=== PATIENT | male | born 1945 | race Caucasian/White ===

== ENCOUNTER → 2016-09-16 | Outpatient (CLI) | payer MEDICARE, OTHER ==
[~2016-09-16] MED LIST: REGADENOSON INJ 0.4 MG/5 ML DISP.SYRIN IV ONE
--- NOTE | 2016-09-17 16:45 | RADIOLOGY REPORT ---
STRESS TEST REPORT PATIENT NAME: JERSEY BIGGS ROOM#: DATE OF SERVICE: 09/16/2016 AGE: 71Y ORDER#: [id number] REFERRING MD: Noam Samson M.D. INDICATION: For assessment of rapid palpitations and shortness of breath. PROCEDURE PERFORMED REST/STRESS SINGLE ISOTOPE CARDIOLITE SPECT IMAGING WITH IV LEXISCAN STRESS AND GATED SPECT IMAGING CLINICAL HISTORY This is a 71-year-old male patient with no known coronary artery disease but has cardiac risk factors of hypercholesterolemia, hypertension and family history of heart problems. Current symptomatology includes shortness of breath and rapid palpitations while sitting. PROCEDURE The patient received IV Lexiscan 0.4 mg infused over ten seconds and flushed. The resting heart rate was 74 bpm and increased to 91 bpm at end infusion. The resting BP was 128/84 and increased to 132/75. Patient had symptoms of shortness of breath, but no chest pains. A few PVCs per minute were seen post IV Lexiscan infusion. Resting 12 lead EKG showed normal sinus rhythm with bigeminal PVCs, early transition, therefore rule-out old true posterior ME. At end infusion, no ST changes were seen. Myocardial perfusion imaging was performed at rest 60 minutes following injection of 14.65 mCi Cardiolite. Ten seconds after the IV Lexiscan injection, the patient was injected with 44.8 mCi Cardiolite and flushed. Gated post stress tomographic imaging was performed 60 minutes after stress. FINDINGS The overall quality of the study is fair. The left ventricular cavity is noted to be enlarged on both the rest and stress studies. There is no abnormal transient ischemic dilatation of the left ventricle. The TID ratio was normal at 1.10. Right ventricular uptake is increased. SPECT images showed no evidence of IV Lexiscan induced reversible ischemia. There are, however, large areas of severe fixed perfusion defects in the basal inferior wall, basal inferolateral wall, and basal inferoseptal wall. The gated SPECT imaging showed severe reduced motion and contraction in the basal two-thirds of the inferior wall, basal inferior wall and basal inferoseptal wall. The left ventricular ejection fraction was calculated to be 37% and there was LV enlargement. IMPRESSION: MYOCARDIAL PERFUSION IMAGING IS ABNORMAL. THERE IS NO IV LEXISCAN INDUCED REVERSIBLE ISCHEMIA. THE ARE, HOWEVER, LARGES AREAS OF SEVERE FIXED PERFUSION DEFECT IN THE BASAL INFERIOR WALL, BASAL INFEROLATERAL WALL AND BASAL INFEROSEPTAL WALL WITH SEVERE REDUCED MOTION AND CONTRACTION SUGGESTING PREVIOUS DAMAGE. THE OVERALL LEFT VENTRICULAR SYSTOLIC FUNCTION IS MODERATELY DEPRESSED TO 37% AND THERE IS LV ENLARGEMENT. NO PRIOR STUDIES FOR COMPARISON. INTERPRETING PHYSICIAN: MATTHEW HERNANDEZ M.D. /: CARLOS TT: [id number] ID: [id number] /: [id number] TD: [id number] JOB: [id number] cc:Geri TORRES M.D. [facility] MD > MTDD
== END ==
LOC: RAD 06:35
PROVIDERS: ATTEND Family Medicine
DX: R06.02 Shortness of breath (principal)
CPT/HCPCS: 93017; 78452; A9500; J2785; Q9969

== ENCOUNTER 2018-01-06 14:22 | Emergency (ER) | payer MEDICARE, OTHER ==
[2018-01-06] MEDS ORDERED: NORMAL SALINE 1000 ML 1,000 ML IV ONE ×2 (14:50→16:59)
--- NOTE | 2018-01-06 15:00 | ER Document Report ---
ED General - General Chief Complaint: Heat Exposure Stated Complaint: WEAKNESS Time Seen by Provider: 01/06/18 14:34 TRAVEL OUTSIDE OF THE [place] IN LAST 30 DAYS: No - HPI Notes: Patient is a 72-year-old male with a history of hypertension, anxiety/depression , PTSD, chronic right hip and right knee pain who presents to the ED with family via EMS for possible syncopal episode. Son states that patient was found near his truck laying on the ground by a neighbor. Patient does not recall falling or the precipitating events. Patient had been working outside all morning. Patient states that he does have some soreness to the right shoulder, but no other acute pain that he is aware of. Patient states that he does have generalized weakness associated. He has not noticed any muscle cramping. Patient states that he did have nausea and vomiting on 2 occasions this morning as well. states that he had been eating and drinking normally otherwise. He had been urinating normally and having normal bowel movements. Denies any significant cardiopulmonary medical history otherwise. Denies any history of smoking or IV drug use. Denies any prolonged immobilization, recent surgery/trauma, personal cancer history, previous DVT/ PE. Denies any headache, fever, obvious head injury, neck pain, changes in vision/speech/mentation/hearing, URI, sore throat, chest pain, palpitations, syncope, cough, shortness of breath, wheeze, dyspnea, abdominal pain, diarrhea, urinary retention, dysuria, hematuria, loss of control of bowel or bladder, numbness/tingling, saddle anesthesia, muscle paralysis, or rash. - Related Data Allergies/Adverse Reactions: aspirin Adverse Reaction (Intermediate, Verified 03/05/16 09:25) metoprolol [From Lopressor] Adverse Reaction (Intermediate, Verified 03/05/16 09 :25) Past Medical History - Social History Smoking Status: Never Smoker Family History: None - Past Medical History Cardiac Medical History: Reports: Hx Hypercholesterolemia Denies: Hx Coronary Artery Disease, Hx Heart Attack, Hx Hypertension Pulmonary Medical History: Reports: Hx Asthma, Hx Pneumonia Denies: Hx Bronchitis, Hx COPD Neurological Medical History: Denies: Hx Cerebrovascular Accident, Hx Seizures Musculoskeletal Medical History: Denies Hx Arthritis Past Surgical History: Reports: Hx Appendectomy - Immunizations Hx Diphtheria, Pertussis, Tetanus Vaccination: No Review of Systems - Review of Systems -: Yes All other systems reviewed and negative Physical Exam - Vital signs Vitals: Resp Pulse Ox 20 100 01/06/18 14:28 01/06/18 14:28 - Notes Notes: PHYSICAL EXAMINATION: accompanied by female nurse GENERAL: appears weak, well-nourished and in no acute distress. A&Ox4. Answers questions appropriately. HEAD: Atraumatic, normocephalic. Non-tender. No blake sign. No hematoma/ bogginess. EYES: Pupils equal round and reactive to light, extraocular movements intact, sclera anicteric, conjunctiva are normal. No raccoon eyes/entrapment ENT: cerumen impaction b/l, cannot remove successfully at this time. TM's unable to be visualized. Nares patent and without discharge. oropharynx clear without exudates. No tonsilar hypertrophy or erythema. Moist mucous membranes. No sinus tenderness. No obvious CSF discharge. NECK: LROM to lateral rotation- mild limitation, supple without lymphadenopathy. No rigidity. No midline tenderness. Chest: no ecchymosis. No flail chest. equal rise/fall. Non-tender LUNGS: Breath sounds clear to auscultation bilaterally and equal. No wheezes rales or rhonchi. HEART: Regular rate and rhythm without murmurs, rubs, gallops. ABDOMEN: Soft, nontender, nondistended abdomen. No guarding, no rebound. No masses appreciated. Normal bowel sounds present. No CVA tenderness bilaterally. no ecchymosis. Rectal: guiac obtained. stool light brown, no obvious melena or hematochezia Musculoskeletal: Rt shoulder: FROM. No obvious deformity, ecchymosis, erythema , swelling. + mild tenderness posterosuperior shoulder to palp. N/V intact distal. Ext's otherwise including pelvis b/l: FROM to passive/active. Strength 5+/5. No deficits noted. No bony tenderness of extremities. Back: FROM to passive/active. Strength 5+/5. No vertebral point tenderness, stepoffs, or deformities. No other bony tenderness or ecchymosis. Extremities: No cyanosis, clubbing, or edema b/l. Peripheral pulses 2+. Capillary refill less than 2 seconds. NEUROLOGICAL: NIH 0. GCS 15. Cranial nerves grossly intact. Normal speech. Normal sensory, motor exams. Reflexes 2+ b/l. BRIDGETTE's negative. Pronator drift negative. Heel/pandey, finger/nose wnl. Walking on heels/toes and heel to toe wnl. PSYCH: Normal mood, normal affect. SKIN: Warm, Dry, normal turgor, no rashes or lesions noted. Course - Re-evaluation Re-evalutation: 01/06/18 15:00 C collar placed after eval. Imaging, labs, and fluids ordered Vitals acceptable at this time. 01/06/18 16:56 Reevaluation of patient. Patient states that he is feeling much better and is communicating a lot better as well. Patient states that he had dizziness prior to his syncopal episode which he has had once before. Patient states that he found a flat area and aided himself to the ground at that time. At this time, patient is not enthusiastic about staying in the hospital for further evaluation. There have not been any significant notable arrhythmias on his monitor and EKG aside from frequent PVCs. CBC does show chronic microcytic hypochromic anemia as well as chronic thrombocytopenia. CMP, cardiac enzymes, chest x-ray, EKG otherwise unremarkable. Orthostatics ordered. CT scan of the head/cervical spine and Rt shoulder XR negative. 01/06/18 17:39 I did have the patient in the interim stand up for me to obtain a guiac. Pt was able to get himself back into the bed, but his O2 dec to 87% on RA. After 30 seconds his O2 increased back to 100% on RA. We will ambulate patient after Orthostatics are obtained to further evaluate. 01/06/18 18:50 Patient is an afebrile, well-hydrated, 72-year-old male who presents to the ED with dizziness and a syncopal episode, since resolved. Vitals are acceptable without significant tachycardia, tachypnea, or hypoxia at this time. PE is otherwise unremarkable for any focal neurological deficits. NIH 0, GCS 15, cranial nerves grossly intact. Orthostatics were negative. Ambulatory test on room air was performed and patient maintain oxygen greater than 95%. Patient states that he is feeling much better and wants to go home. I did review admission versus discharge to home with the patient and family thoroughly after review with Dr. Albright who advised admission for syncopal work up. Patient declined this despite the risk and benefit thoroughly reviewed. Patient is willing to sign the AMA sheet. Guaiac was negative. No other labs or imaging warranted at this time based on H&P. Advise recheck tomorrow morning with primary care provider. Return to the ED with any worsening/concerning symptoms otherwise as reviewed in discharge. Patient and family are in agreement. - Vital Signs Vital signs: Temp Pulse Resp BP Pulse Ox 97.4 F 70 19 162/109 H 100 01/06/18 14:36 01/06/18 18:20 01/06/18 17:40 01/06/18 18:20 01/06/18 17:40 - Laboratory Result Diagrams: 01/06/18 14:33 01/06/18 14:33 Laboratory results interpreted by me: 01/06/18 01/06/18 14:33 14:33 Hgb 9.6 L Hct 29.5 L MCV 59 L MCH 19.2 L RDW 16.3 H Plt Count 91 L Chloride 112 H Carbon Dioxide 20 L Glucose 73 L Discharge - Discharge Clinical Impression: Episode of syncope Qualifiers: Syncope type: unspecified Qualified Code(s): R55 - Syncope and collapse Condition: Stable Disposition: AGAINST MEDICAL ADVICE Additional Instructions: Maintain adequate fluid and food intake Take home medications as directed Healthy diet Monitor blood pressure daily and keep a log Monitor symptoms for any acute changes Recheck with your PCM tomorrow Consider a follow-up with cardiology Return to the ED with any worsening symptoms and/or development of fever, headache, chest pain, palpitations, syncope, shortness of breath, trouble breathing, abdominal pain, n/v/d, blood in stool/urine, loss of control of bowel /bladder, urinary retention, muscle weakness/paralysis, numbness/tingling, or other worsening symptoms that are concerning to you. Forms: Elevated Blood Pressure Referrals: BYRON SMITH MD [Primary Care Provider] - Follow up tomorrow
[2018-01-06 15:12] LABS: ABSOLUTE BASOPHILS # (AUTO) 0.1 10^3/uL (0.0-0.2); ABSOLUTE EOSINOPHILS # (AUTO) 0.1 10^3/uL (0.0-0.6); ABSOLUTE LYMPHOCYTES (AUTO) 1.3 10^3/uL (0.5-4.7); ABSOLUTE MONOCYTES (AUTO) 0.4 10^3/uL (0.1-1.4); ABSOLUTE NEUT (AUTO) 3.5 10^3/uL (1.7-8.2); BASOPHILS % (AUTO) 1.2 % (0-2); EOSINOPHILS % (AUTO) 2.3 % (0-6); HEMATOCRIT 29.5 % (37.9-51.0); HEMOGLOBIN 9.6 g/dL (13.5-17.0); LYMPHOCYTES % (AUTO) 24.4 % (13-45); MEAN CORPUSCULAR HEMOGLOBIN 19.2 pg (27.0-33.4); MEAN CORPUSCULAR HGB CONC 32.6 g/dL (32.0-36.0); MEAN CORPUSCULAR VOLUME 59 fl (80-97); RED BLOOD COUNT 5.02 10^6/uL (4.35-5.55); RED CELL DISTRIBUTION WIDTH 16.3 % (11.5-14.0); SEGMENTED NEUTROPHILS % (AUTO) 65.1 % (42-78); TOTAL CELLS COUNTED % (AUTO) 100 %; WHITE BLOOD COUNT 5.4 10^3/uL (4.0-10.5)
--- NOTE | 2018-01-06 15:31 | RADIOLOGY REPORT (SQ) ---
EXAM DESCRIPTION: CT HEAD WITHOUT COMPLETED DATE/TIME: 01/06/2018 3:22 pm REASON FOR STUDY: syncopal episode COMPARISON: None. TECHNIQUE: Axial images acquired through the brain without intravenous contrast. Images reviewed wi th bone, brain and subdural windows. Images stored on PACS. All CT scanners at this facility use dose modulation, iterative reconstruction, and/or weight based d osing when appropriate to reduce radiation dose to as low as reasonably achievable (ALARA). [facility]: Dose Right [facility]: CareDose [facility]: Dose Right [facility]: Teradose 4D [facility]: Smart [employer] RADIATION DOSE: CT Rad equipment meets quality standard of care and radiation dose reduction techniq ues were employed. CTDIvol: 53.2 mGy. DLP: 1097 mGy-cm. mGy. LIMITATIONS: None. FINDINGS: VENTRICLES: Prominent. CEREBRUM: No masses. No hemorrhage. No midline shift. Areas of low density in the white matter mos t likely due to chronic micro-vascular ischemic change. No evidence for acute infarction. CEREBELLUM: No masses. No hemorrhage. No alteration of density. No evidence for acute infarction. EXTRAAXIAL SPACES: Mild age-related involutional change. No fluid collections. No masses. ORBITS AND GLOBE: No intra- or extraconal masses. Normal contour of globe without masses. CALVARIUM: No fracture. PARANASAL SINUSES: No fluid or mucosal thickening. SOFT TISSUES: No mass or hematoma. OTHER: No other significant finding. IMPRESSION: MILD CHRONIC CHANGES OF ATROPHY AND MICROVASCULAR ISCHEMIA. NO ACUTE PROCESS. EVIDENCE OF ACUTE STROKE: NO. TECHNICAL DOCUMENTATION: JOB ID: [id number] Quality ID # [id number]: Final reports with documentation of one or more dose reduction techniques (e.g., Au tomated exposure control, adjustment of the mA and/or kV according to patient size, use of iterative reconstruction technique) 2010 [employer]- All Rights Reserved Reading location - IP/workstation name: [email or web address]
--- NOTE | 2018-01-06 15:32 | RADIOLOGY REPORT (SQ) ---
EXAM DESCRIPTION: CT CERVICAL SPINE WITHOUT COMPLETED DATE/TIME: 01/06/2018 3:22 pm REASON FOR STUDY: syncopal episode COMPARISON: None. TECHNIQUE: Axial images acquired through the cervical spine without intravenous contrast. Images re viewed with lung, soft tissue and bone windows. Reconstructed coronal and sagittal MPR images review ed. Images stored on PACS. All CT scanners at this facility use dose modulation, iterative reconstruction, and/or weight based d osing when appropriate to reduce radiation dose to as low as reasonably achievable (ALARA). [facility]: Dose Right [facility]: CareDose [facility]: Dose Right [facility]: Teradose 4D [facility]: [employer] RADIATION DOSE: CT Rad equipment meets quality standard of care and radiation dose reduction techniq ues were employed. CTDIvol: 22.7 mGy. DLP: 472 mGy-cm. mGy. LIMITATIONS: None. FINDINGS: ALIGNMENT: Anatomic. MINERALIZATION: Normal. VERTEBRAL BODIES: No fractures or dislocation. DISCS: Mild multilevel spondylosis. FACETS, LATERAL MASSES, POSTERIOR ELEMENTS: No fractures. No dislocation. No acute findings. HARDWARE: None in the spine. VISUALIZED RIBS: No fractures. LUNG APICES AND SOFT TISSUES: No significant or acute findings. OTHER: No other significant finding. IMPRESSION: Mild degenerative changes in the lower cervical spine. No acute findings. TECHNICAL DOCUMENTATION: JOB ID: [id number] Quality ID # [id number]: Final reports with documentation of one or more dose reduction techniques (e.g., Au tomated exposure control, adjustment of the mA and/or kV according to patient size, use of iterative reconstruction technique) 2010 [email or web address]- All Rights Reserved Reading location - IP/workstation name: [email or web address]
[2018-01-06 15:34] LABS: ALANINE AMINOTRANSFERASE 26 U/L (21-72); ALBUMIN 3.8 g/dL (3.5-5.0); ALKALINE PHOSPHATASE 61 U/L (38-126); ANION GAP 12 (5-19); ASPARTATE AMINO TRANSFERASE 32 U/L (17-59); BILIRUBIN,DIRECT 0.3 mg/dL (0.0-0.4); BILIRUBIN,TOTAL 0.5 mg/dL (0.2-1.3); BLOOD UREA NITROGEN 17 mg/dL (7-20); CALCIUM 8.9 mg/dL (8.4-10.2); CARBON DIOXIDE 20 mmol/L (22-30); CHLORIDE 112 mmol/L (98-107); CREATINE KINASE 119 U/L (55-170); GLUCOSE 73 mg/dL (75-110); TOTAL PROTEIN 6.6 g/dL (6.3-8.2)
--- NOTE | 2018-01-06 15:40 | RADIOLOGY REPORT (SQ) ---
EXAM DESCRIPTION: SHOULDER RIGHT 2 OR MORE VIEWS COMPLETED DATE/TIME: 01/06/2018 3:30 pm REASON FOR STUDY: rt shoulder pain COMPARISON: None. NUMBER OF VIEWS: Three views. TECHNIQUE: Internal rotation, external rotation, and Y view images acquired of the right shoulder. LIMITATIONS: None. FINDINGS: MINERALIZATION: Normal. BONES: No acute fracture or dislocation. No worrisome bone lesions. JOINTS: No dislocation. VISUALIZED LUNGS AND RIBS: No pneumothorax. No rib fracture. SOFT TISSUES: No radiopaque foreign body. OTHER: No other significant finding. IMPRESSION: NEGATIVE STUDY OF THE RIGHT SHOULDER. NO RADIOGRAPHIC EVIDENCE OF ACUTE INJURY. TECHNICAL DOCUMENTATION: JOB ID: [id number] [employer]- All Rights Reserved Reading location - IP/workstation name: [email or web address]
--- NOTE | 2018-01-06 15:40 | RADIOLOGY REPORT (SQ) ---
EXAM DESCRIPTION: CHEST SINGLE VIEW COMPLETED DATE/TIME: 01/06/2018 3:30 pm REASON FOR STUDY: syncopal episode COMPARISON: CT chest dated 01/24/2015 EXAM PARAMETERS: NUMBER OF VIEWS: One view. TECHNIQUE: Single frontal radiographic view of the chest acquired. RADIATION DOSE: NA LIMITATIONS: None. FINDINGS: LUNGS AND PLEURA: No opacities, masses or pneumothorax. No pleural effusion. MEDIASTINUM AND HILAR STRUCTURES: No masses. Contour normal. HEART AND VASCULAR STRUCTURES: Heart normal in size. Normal vasculature. BONES: No acute findings. HARDWARE: None in the chest. OTHER: No other significant finding. IMPRESSION: NO ACUTE RADIOGRAPHIC FINDING IN THE CHEST. TECHNICAL DOCUMENTATION: JOB ID: [id number] [employer]- All Rights Reserved Reading location - IP/workstation name: [email or web address]
[2018-01-06 15:44] LABS: CREATINE KINASE MB 1.54 ng/mL (<4.55)
[2018-01-06 15:45] LABS: TROPONIN I < 0.012 ng/mL
[2018-01-06 15:52] LABS: ANISOCYTOSIS 2+; OVALOCYTES 2+; PLATELET COMMENT DECREASED; TARGET CELLS 1+
[2018-01-06 16:09] LABS: PLATELET COUNT 91 10^3/uL (150-450)
[2018-01-06 16:26] LABS: APPEARANCE,URINE CLEAR; BILIRUBIN,URINE NEGATIVE (NEGATIVE); COLOR,URINE YELLOW; GLUCOSE, URINE NEGATIVE (NEGATIVE); KETONES,URINE NEGATIVE (NEGATIVE); LEUKOCYTE ESTERASE,URINE NEGATIVE (NEGATIVE); NITRITE,URINE NEGATIVE (NEGATIVE); PROTEIN,URINE NEGATIVE (NEGATIVE); URINE SPECIFIC GRAVITY 1.008; UROBILINOGEN,URINE NEGATIVE mg/dL (<2.0)
[2018-01-06 19:03] VITALS: BP 160/104
--- NOTE | 2018-01-06 19:21 | EKG REPORT ---
SEVERITY:- ABNORMAL ECG - SINUS RHYTHM MULTIPLE VENTRICULAR PREMATURE COMPLEXES : Confirmed by: Indra Renteria MD 06-Jan-2018 19:21:06
== END 2018-01-06 19:00 | disposition left against medical advice (07) ==
LOC: ER 14:22
DX: R55 Syncope and collapse (principal); R53.1 Weakness; I10 Essential (primary) hypertension; E78.00 Pure hypercholesterolemia, unspecified; Z88.6 Allergy status to analgesic agent
CPT/HCPCS: 93005; 99284; 96360; 96361; 36415; 82553; 82550; 85025; 82272; 80053; 81001; 84484; 71045; 73030; 70450; 72125; 93010; L0120; J7030

== ENCOUNTER 2020-02-04 09:08 | Emergency (ER) | payer MEDICARE, OTHER ==
--- NOTE | 2020-02-04 09:57 | ER Document Report ---
ED General - General Chief Complaint: Leg Swelling Stated Complaint: BODY SWELLING Time Seen by Provider: 02/04/20 09:30 Primary Care Provider: ARAMIS SMITH MD [Primary Care Provider] - Follow up as needed TRAVEL OUTSIDE OF THE [place] 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 He notes that occasionally when he climbs a flight of steps at home he has some tightness in both shoulders. He denies any known history of cardiac disease. He denies any cough, sputum production or hemoptysis. He denies any known history of kidney or liver disease. He denies any known history of thyroid disease. Patient is never been a cigarette smoker. Patient is not known to be diabetic. Patient says he is never been treated for hypertension in the past but notes recently his blood pressures been elevated several times when he went to the drugstore and had it checked with an automated device. Family history positive for CAD. - Related Data Allergies/Adverse Reactions: aspirin Adverse Reaction (Intermediate, Verified 02/04/20 09:16) metoprolol [From Lopressor] Adverse Reaction (Intermediate, Verified 02/04/20 09:16) Past Medical History - General Information source: Patient, Relative - Social History Smoking Status: Never Smoker Frequency of alcohol use: None Drug Abuse: None Family History: None Patient has homicidal ideation: No - Past Medical History Cardiac Medical History: Reports: Hx Hypercholesterolemia Denies: Hx Coronary Artery Disease, Hx Heart Attack, Hx Hypertension Pulmonary Medical History: Reports: Hx Asthma, Hx Pneumonia Denies: Hx Bronchitis, Hx COPD Neurological Medical History: Denies: Hx Cerebrovascular Accident, Hx Seizures Endocrine Medical History: Denies: Hx Diabetes Mellitus Type 1, Hx Diabetes Mellitus Type 2, Hx Hyperthyroidism, Hx Hypothyroidism Renal/ Medical History: Reports: None. Denies: Hx Peritoneal Dialysis Malignancy Medical History: Reports None GI Medical History: Reports: None Musculoskeletal Medical History: Denies Hx Arthritis Psychiatric Medical History: Reports: Hx Post Traumatic Stress Disorder Past Surgical History: Reports: Hx Appendectomy - Immunizations Hx Diphtheria, Pertussis, Tetanus Vaccination: No Review of Systems - Review of Systems Notes: Constitutional: Negative for fever. HENT: Negative for sore throat. Eyes: Negative for visual changes. Cardiovascular: As per HPI. Respiratory: As per HPI. Gastrointestinal: Negative for abdominal pain, vomiting or diarrhea. Genitourinary: Negative for dysuria. Musculoskeletal: Negative for back pain. Skin: Negative for rash. Neurological: Negative for headaches, focal weakness or numbness. 10 point ROS negative except as marked above and in HPI. Physical Exam - Vital signs Vitals: Temp Pulse Resp BP Pulse Ox 98.0 F 120 H 20 142/104 H 86 L 02/04/20 09:15 02/04/20 09:15 02/04/20 09:15 02/04/20 09:15 02/04/20 09:15 - Notes Notes: GENERAL: Male patient of approximately stated age who appears mildly sedated and little slow to answer my questions. SKIN: Good turgor no rashes. HEAD: Normocephalic atraumatic. EYES: PERRLA. EOMI. Conjunctivae and sclerae clear. EARS: CANALS AND TMS CLEAR. NOSE: CLEAR. MOUTH: Moist mucosa. Good dentition. No stridor or edema. No drooling. NECK: Supple. No masses or thyromegaly. No adenopathy. Carotids 2+ without bruits. No JVD. BACK: Symmetrical without tenderness. CHEST: Diminished breath sounds both bases respirations unlabored. Breath sounds clear and symmetrical. HEART: Regular rhythm. No murmur gallop or rub. ABDOMEN: Moderately obese. Soft nontender without masses, organomegaly or rebound. Bowel sounds normally active. No bruits. GENITALIA: Deferred. EXTREMITIES: 3+ bilateral pretibial edema. No calf tenderness. Cap refill less than 1.5 seconds. Dorsalis pedis and posterior tibial pulses 3+ and symmetrical. NEUROLOGICAL: GCS 15. Sleepy but oriented x3. Fluent speech. Cranial nerves II through XII intact. Sensorimotor and cerebellar normal. Normal tone. PSYCHIATRIC: Flat affect. Course - Re-evaluation Re-evalutation: 02/04/20 11:41 Patient is found to be mildly anemic. now tells me that he has a lifelong history of thalassemia. His troponin is normal. His BNP is significantly elevated and he has some elevated transaminases suggestive of acid hepatic congestion. EKG did not show any acute ischemic changes. This x-ray shows small bilateral pleural effusions and mild vascular congestion. He is oxygenating normally. I will give him a dose of IV Lasix here and if he responds well to this I think he should be stable for outpatient evaluation by software engineering supervisor for echocardiogram. 02/04/20 15:18 Brisk diuresis from Lasix. Normal oxygenation. Normal vital signs. TSH was normal. His BNP is elevated around 2100. He appears stable for outpatient follow-up with cardiology he and his are agreeable with this plan. Findings, clinical impression and plan of treatment have been discussed with patient/family. Understanding of current findings and recommendations has been acknowledged by them and there is agreement regarding disposition and follow-up. - Vital Signs Vital signs: Temp Pulse Resp BP Pulse Ox 98.0 F 120 H 20 142/104 H 86 L 02/04/20 09:15 02/04/20 09:15 02/04/20 09:15 02/04/20 09:15 02/04/20 09:15 - Laboratory Result Diagrams: 02/04/20 09:47 02/04/20 09:47 Laboratory results interpreted by me: 02/04/20 02/04/20 02/04/20 09:47 09:47 09:47 Hgb 9.6 L Hct 31.0 L MCV 61 L MCH 19.1 L MCHC 31.2 L RDW 16.7 H Plt Count 69 L Lymph % (Auto) 10.3 L PT 16.4 H APTT 46.2 H BUN 27 H Glucose 121 H AST 364 H ALT 432 H NT-Pro-B Natriuret Pep Total Protein 5.9 L 02/04/20 09:47 Hgb Hct MCV MCH MCHC RDW Plt Count Lymph % (Auto) PT APTT BUN Glucose AST ALT NT-Pro-B Natriuret Pep 3870 H Total Protein - EKG Interpretation by Me Additional EKG results interpreted by me: 02/04/20 09:59 Twelve-lead EKG reviewed by me contemporaneously: 0954 hrs. Indication for study: Dyspnea Rhythm: Sinus tachycardia Rate: 101 Intervals: Normal QRS axis: +[address]/T wave changes: Nonspecific T wave abnormality with no ST shift Comparison with prior tracing: Compared with prior tracing from 01/06/2018 there are new nonspecific T wave changes. Patient was previously noted to have some ventricular ectopy which has resolved. Interpretation: Sinus tachycardia with nonspecific T wave changes Discharge - Discharge Clinical Impression: Acute decompensated heart failure Condition: Stable Disposition: HOME, SELF-CARE Additional Instructions: Congestive Heart Failure You have been diagnosed as having congestive heart failure (CHF). CHF occurs when the heart is unable to pump blood efficiently, leading to fluid buildup in the veins and lungs. Typical symptoms are swelling of the legs, shortness of breath on minor exertion, and fatigue. CHF is treated with salt restriction, medicine to eliminate excess water and salt from the body, and medication to help the heart contract more efficiently. Eliminate added salt and salty foods in your diet. Decrease your activity until excess fluid has been eliminated. It will also be helpful to raise the head of your bed so you can sleep more easily. Keep a daily record of your weight. This will help your physician monitor your progress. Once extra water has been eliminated, light aerobic exercise daily -- such as walking -- will be helpful (unless your physician has told you to restrict activity for other reasons). Be sure to follow up with the physician as instructed. Contact the doctor at once if you worsen in any way. Take prescribed medication. Return here as needed for new or worsening symptoms: Pain that is worsening or unimproved Uncontrolled vomiting High fever or shaking chills Overall worsening Schedule follow-up visit with referral software engineering supervisor within the next 3 to 5 days. Prescriptions: Furosemide [Lasix 40 mg Tablet] 40 mg PO QAM #30 tablet Referrals: ARAMIS SMITH MD [Primary Care Provider] - Follow up as needed YULIYA SÁNCHEZ MD [ACTIVE STAFF] - Follow up as needed
[2020-02-04 10:16] LABS: ABSOLUTE BASOPHILS # (AUTO) 0.1 10^3/uL (0.0-0.2); ABSOLUTE EOSINOPHILS # (AUTO) 0.2 10^3/uL (0.0-0.6); ABSOLUTE LYMPHOCYTES (AUTO) 0.6 10^3/uL (0.5-4.7); ABSOLUTE MONOCYTES (AUTO) 0.4 10^3/uL (0.1-1.4); ABSOLUTE NEUT (AUTO) 4.4 10^3/uL (1.7-8.2); BASOPHILS % (AUTO) 0.9 % (0-2); HEMOGLOBIN 9.6 g/dL (13.5-17.0); INTERNATIONAL RATION (INR) 1.31; LYMPHOCYTES % (AUTO) 10.3 % (13-45); MEAN CORPUSCULAR HEMOGLOBIN 19.1 pg (27.0-33.4); MEAN CORPUSCULAR HGB CONC 31.2 g/dL (32.0-36.0); MEAN CORPUSCULAR VOLUME 61 fl (80-97); MONOCYTES % (AUTO) 7.9 % (3-13); PROTHROMBIN TIME 16.4 SEC (11.4-15.4); RED BLOOD COUNT 5.06 10^6/uL (4.35-5.55); RED CELL DISTRIBUTION WIDTH 16.7 % (11.5-14.0); SEGMENTED NEUTROPHILS % (AUTO) 77.9 % (42-78); TOTAL CELLS COUNTED % (AUTO) 100 %; WHITE BLOOD COUNT 5.7 10^3/uL (4.0-10.5)
[2020-02-04 10:17] LABS: PARTIAL THROMBOPLASTIN TIME 46.2 SEC (23.5-35.8)
[2020-02-04 10:26] LABS: ALBUMIN 3.5 g/dL (3.5-5.0); ALKALINE PHOSPHATASE 101 U/L (38-126); ANION GAP 8 (5-19); ASPARTATE AMINO TRANSFERASE 364 U/L (17-59); BILIRUBIN,DIRECT 0.4 mg/dL (0.0-0.4); BILIRUBIN,TOTAL 0.8 mg/dL (0.2-1.3); BLOOD UREA NITROGEN 27 mg/dL (7-20); CALCIUM 8.5 mg/dL (8.4-10.2); CARBON DIOXIDE 26 mmol/L (22-30); CHLORIDE 105 mmol/L (98-107); GLUCOSE 121 mg/dL (75-110); POTASSIUM 3.9 mmol/L (3.6-5.0); TOTAL PROTEIN 5.9 g/dL (6.3-8.2)
[2020-02-04 10:27] LABS: ALCOHOL < 10 mg/dL (NONE DETECTED)
--- NOTE | 2020-02-04 10:39 | EKG REPORT ---
SEVERITY:- ABNORMAL ECG - SINUS TACHYCARDIA LOW VOLTAGE IN FRONTAL LEADS NONSPECIFIC T ABNORMALITIES, DIFFUSE LEADS : Confirmed by: Yodit Velazquez MD 04-Feb-2020 10:38:40
[2020-02-04 10:49] LABS: PLATELET COUNT 69 10^3/uL (150-450)
[2020-02-04 10:57] LABS: ANISOCYTOSIS 1+; HYPOCHROMASIA 3+; OVALOCYTES 1+; PLATELET COMMENT DECREASED; SCHISTOCYTES 1+
--- NOTE | 2020-02-04 11:04 | RADIOLOGY REPORT (SQ) ---
EXAM DESCRIPTION: CHEST 2 VIEWS IMAGES COMPLETED DATE/TIME: 02/04/2020 10:54 am REASON FOR STUDY: dyspnea COMPARISON: 01/06/2018. EXAM PARAMETERS: NUMBER OF VIEWS: two views TECHNIQUE: Digital Frontal and Lateral radiographic views of the chest acquired. RADIATION DOSE: NA LIMITATIONS: none FINDINGS: LUNGS AND PLEURA: Possible faint density in the lateral left lung base. Mild blunting of the costophrenic angles. MEDIASTINUM AND HILAR STRUCTURES: No masses or contour abnormalities. HEART AND VASCULAR STRUCTURES: Heart upper limits of normal size. No evidence for failure. BONES: No acute findings. Degenerative changes in the spine. HARDWARE: None in the chest. OTHER: No other significant finding. IMPRESSION: PROBABLE SMALL PLEURAL EFFUSIONS. POSSIBLE ATELECTASIS IN THE LEFT LUNG BASE. TECHNICAL DOCUMENTATION: JOB ID: [id number] 2010 [employer]- All Rights Reserved Reading location - IP/workstation name: [email or web address]
[2020-02-04] MEDS ORDERED: FUROSEMIDE INJ/PF 20 MG/2 ML SDV IV ONE (11:32)
[2020-02-04 13:14] LABS: APPEARANCE,URINE CLEAR; BILIRUBIN,URINE NEGATIVE (NEGATIVE); COLOR,URINE YELLOW; GLUCOSE, URINE NEGATIVE (NEGATIVE); KETONES,URINE NEGATIVE (NEGATIVE); PROTEIN,URINE NEGATIVE (NEGATIVE); UROBILINOGEN,URINE NEGATIVE mg/dL (<2.0)
[2020-02-04 13:35] LABS: URINE AMPHETAMINES SCREEN NEGATIVE; URINE BARBITURATES SCREEN NEGATIVE; URINE COCAINE SCREEN NEGATIVE; URINE METHADONE SCREEN NEGATIVE; URINE PHENCYCLIDINE SCREEN NEGATIVE
[2020-02-04 13:51] LABS: URINE BENZODIAZEPINES SCREEN UNCONFIRMED POSITIVE
[2020-02-04 14:03] LABS: URINE MARIJUANA (THC) SCREEN NEGATIVE
[2020-02-04 16:19] VITALS: BP 150/106
== END 2020-02-04 15:42 | disposition home or self-care (01) ==
LOC: ER 09:08
DX: I50.9 Heart failure, unspecified (principal); M79.89 Other specified soft tissue disorders; R60.0 Localized edema; R06.00 Dyspnea, unspecified; D56.9 Thalassemia, unspecified; E78.5 Hyperlipidemia, unspecified; Z88.8 Allergy status to other drugs, medicaments and biological substances; J45.909 Unspecified asthma, uncomplicated; E66.9 Obesity, unspecified
CPT/HCPCS: 93005; 99285; 96374; 36415; 80307 ×2; 83735; 84443; 85025; 85610; 85730; 80053; 81001; 84484; 83880; 71046; 93010; J1940